=== PATIENT | female | born 1990 | race Two or more races ===

== ENCOUNTER 2016-03-29 07:33 | Emergency (ER) | payer MEDICAID ==
[~2016-03-29] VITALS: Ht 162.6 cm; Wt 77.1 kg
[~2016-03-29 07:33] MED LIST: ACETAMINOPHEN-1 EAC1 ORAL; AMOXICILLIN500 MG ORAL; BROMOCRIPTINE ME5 MG PO; CEPHALEXIN500 MG ORAL; HYDROXYZINE HCL50 M1 PO; IBUPROFEN600 MG ORAL; NKM; NORCO 5-325 TA1 EACH ORAL
--- NOTE | 2016-03-29 07:54 | Emergency Room Report ---
History of Present Illness General Chief Complaint: Flu Like Symptoms Source: Patient Present Illness HPI Patient presents with complaints of cough and congestion Nasal congestion Symptoms ongoing for the past 7 days Denies any headache or visual changes Patient described a midsternal pain with increased cough Denies any vomiting or diarrhea Patient also has had intermittent fevers no Patient complains of productive sputum with the cough Denies any calf pain or swelling Patient recently found out she is about one month ago pending further outpatient workup Allergies: Coded Allergies: No Known Allergies (Unverified , 08/05/13) Patient History Past Medical History: see triage record Pertinent Family History: none Last Menstrual Period: Feb 05, 2016 Now: Yes : 1 Para: 0 Reviewed Nursing Documentation: PMH: Agreed, PSxH: Agreed Nursing Documentation-PMH Past Medical History: No History, Except For Hx Cardiac Problems: No - Pituitary gland problem since 2009 Hx Asthma: No Hx COPD: No Hx Neurological Problems: No - Rt knee surgery in 2008 Review of Systems All Other Systems: negative except mentioned in HPI Physical Exam Vital Signs Date Time Temp Pulse Resp B/P Pulse Ox O2 Delivery O2 Flow Rate FiO2 03/29/16 07:39 99.1 105 20 138/85 98 Room Air Sp02 EP Interpretation: reviewed, normal General Appearance: well appearing, no apparent distress Head: normocephalic, atraumatic Eyes: bilateral eye EOMI, bilateral eye PERRL ENT: hearing grossly normal, normal pharynx, TMs + canals normal, uvula midline , other - Nasal congestion, clear rhinorrhea Neck: full range of motion, supple, no meningismus, no bony tend Respiratory: lungs clear, normal breath sounds, no rhonchi, no respiratory distress, no retraction, no accessory muscle use Cardiovascular #1: normal peripheral pulses, regular rate, rhythm, no edema, no gallop, no JVD, no murmur Gastrointestinal: normal bowel sounds, non tender, soft, no mass, no organomegaly, non-distended, no guarding, no hernia, no pulsatile mass, no rebound Genitourinary: no CVA tenderness Musculoskeletal: normal inspection Neurologic: oriented x3, responsive, trust vault clerk III-XII nml as tested, motor strength/ tone normal, sensory intact Psychiatric: mood/affect normal Skin: normal color, no rash, warm/dry, palpation normal Lymphatic: normal inspection, no adenopathy Medical Decision Making Diagnostic Impression: Primary Impression: Upper respiratory infection ER Course Patient's lung sounds appear to be clear No signs of any respiratory distress patient saturating well Findings are in line with likely URI symptoms My suspicion for pulmonary embolism is low given the associated symptoms and signs And the patient will have initial conservative outpatient trial Last Vital Signs Date Time Temp Pulse Resp B/P Pulse Ox O2 Delivery O2 Flow Rate FiO2 03/29/16 07:49 105 20 Room Air 03/29/16 07:39 99.1 138/85 98 Status: unchanged Disposition: HOME, SELF-CARE Condition: Stable Scripts Albuterol Sulfate* (ALBUTEROL SULFATE MDI*) 8.5 Gm Hfa.aer.ad 2 PUFF INH Q6H, #1 EA 0 Refills Prov: CHAVA SILVA D.O. 03/29/16 Additional Instructions: Patient is provided with the discharge instructions notified to follow up with primary doctor in the next 2-3 days otherwise return to the er with any worsening symptoms. Please note that this report is being documented using [employer] technology. This can lead to erroneous entry secondary to incorrect interpretation by the dictating instrument. CHAVA SILVA D.O. Mar 29, 2016 07:54
[2016-03-29] MEDS ORDERED: AZITHROMYCIN250 MG ORAL (07:55)
[2016-03-29] MEDS ORDERED: ALBUTEROL SULF8.5 GM INH (07:55)
[2016-03-29 08:26] VITALS: BP 114/75
== END 2016-03-29 08:29 | disposition home or self-care (01) ==
LOC: EMR 08:05
DX: J06.9 Acute upper respiratory infection, unspecified (principal); O26.91 Pregnancy related conditions, unspecified, first trimester; Z3A.00 Weeks of gestation of pregnancy not specified
CPT/HCPCS: 99283

== ENCOUNTER 2016-08-06 08:42 | Emergency (ER) | payer MEDICAID ==
[~2016-08-06] VITALS: Ht 165.1 cm; Wt 77.1 kg
[~2016-08-06 08:42] MED LIST changes: +ALBUTEROL SULF8.5 GM INH; +AZITHROMYCIN250 MG ORAL
--- NOTE | 2016-08-06 09:09 | Emergency Room Report ---
History of Present Illness General Chief Complaint: Sore Throat Source: Patient Present Illness HPI This 26-year-old this 26 weeks and presents with sore throat, cough and headache with coughing. This began 2 days ago. She's having difficulty sleeping. She does have headaches that she feels are related to a prolactinoma. She's taking bromocriptine at this time. Headache is only present when she is coughing. She states the pain is 9/10. This is not unusual for her. Pounding when she does cough. She's been able to eat and drink fluids without vomiting or nausea. She heard herself wheezing one time. The cough produces yellow phlegm when she is able to get some up. She did not take any medication last night for the headache or the cough. She's used an inhaler in the past. She states the baby is been active, more so last night. She denies any vaginal bleeding or discharge. She states her urine is somewhat different from her usual. Her last ultrasound determined baby is boy. Allergies: Coded Allergies: No Known Allergies (Unverified , 08/05/13) Patient History Past Medical History: see triage record, other - prolactinoma Social History Narrative at home Last Menstrual Period: 01/12/16 Now: Yes : 1 Para: 1 Reviewed Nursing Documentation: PMH: Agreed, PSxH: Agreed Nursing Documentation-PMH Hx Cardiac Problems: No - Pituitary gland problem since 2009 Hx Asthma: No Hx COPD: No Hx Neurological Problems: No - Rt knee surgery in 2008 Review of Systems All Other Systems: negative except mentioned in HPI Physical Exam Vital Signs Date Time Temp Pulse Resp B/P Pulse Ox O2 Delivery O2 Flow Rate FiO2 08/06/16 08:46 98.1 93 15 129/73 98 Room Air Sp02 EP Interpretation: reviewed, normal General Appearance: well appearing, no apparent distress, GCS 15 Head: normocephalic, atraumatic Eyes: bilateral eye PERRL, bilateral eye normal inspection ENT: moist mucus membranes Neck: supple Respiratory: lungs clear, normal breath sounds Cardiovascular #1: regular rate, rhythm Cardiovascular #2: 2+ radial (R) Gastrointestinal: normal inspection, normal bowel sounds, non tender, no mass, non-distended Genitourinary: deferred Musculoskeletal: back normal, gait/station normal, normal range of motion Neurologic: alert, oriented x3, lead electrical controls engineer III-XII nml as tested, motor strength/tone normal, DTRs symmetric, sensory intact, cerebellar normal, normal gait, speech normal Psychiatric: mood/affect normal Skin: normal inspection, warm/dry Medical Decision Making Diagnostic Impression: Primary Impression: Upper respiratory infection Qualified Codes: J06.9 - Acute upper respiratory infection, unspecified Additional Impressions: 26 weeks gestation of UTI (urinary tract infection) Qualified Codes: N30.00 - Acute cystitis without hematuria History of prolactinoma ER Course This 26 week and woman presents with headache and upper respiratory complaints. Differential includes otitis, bronchospasm, viral syndrome amongst others. His history of prolactinoma and has a headache with this. Her neurologic exam is normal. She's had headaches this severe in the past. She does not take any medication. She feels dehydrated. No imaging is indicated. Laboratory evaluation will be undertaken to make sure there is no electrolyte abnormalities. The patient will be given IV hydration and Tylenol. The patient declines needing a breathing treatment at this time. Urinalysis will be obtained to evaluate the change in the urine. Labs with normal WBC and lytes. Pyuria. Ultrasound was performed by me. heart tones were 136 and the baby had good movement. Patient improved with treatment. Stable for outpatient observation and treatment. Labs Test 08/06/16 09:40 White Blood Count 7.8 K/UL (4.8-10.8) Red Blood Count 4.15 M/UL (4.20-5.40) Hemoglobin 13.4 G/DL (12.0-16.0) Hematocrit 39.1 % (37.0-47.0) Mean Corpuscular Volume 94 FL (80-99) Mean Corpuscular Hemoglobin 32.2 PG (27.0-31.0) Mean Corpuscular Hemoglobin Concent 34.1 G/DL (32.0-36.0) Red Cell Distribution Width 11.9 % (11.6-14.8) Platelet Count 158 K/UL (150-450) Mean Platelet Volume 7.0 FL (6.5-10.1) Neutrophils (%) (Auto) 72.0 % (45.0-75.0) Lymphocytes (%) (Auto) 16.8 % (20.0-45.0) Monocytes (%) (Auto) 8.2 % (1.0-10.0) Eosinophils (%) (Auto) 1.7 % (0.0-3.0) Basophils (%) (Auto) 1.3 % (0.0-2.0) Urine Color Pale yellow Urine Appearance Slightly cloudy Urine pH 8 (4.5-8.0) Urine Specific [place] 1.010 (1.005-1.035) Urine Protein Negative (NEGATIVE) Urine Glucose (UA) Negative (NEGATIVE) Urine Ketones 2+ (NEGATIVE) Urine Occult Blood Negative (NEGATIVE) Urine Nitrite Negative (NEGATIVE) Urine Bilirubin Negative (NEGATIVE) Urine Urobilinogen Normal MG/DL (0.0-1.0) Urine Leukocyte Esterase 3+ (NEGATIVE) Urine RBC 0-2 /HPF (0 - 2) Urine WBC 10-15 /HPF (0 - 2) Urine Squamous Epithelial Cells Moderate /LPF (NONE/OCC) Urine Bacteria Few /HPF (NONE) Sodium Level 141 mEQ/L (135-145) Potassium Level 3.6 mEQ/L (3.4-4.9) Chloride Level 103 mEQ/L (98-107) Carbon Dioxide Level 23 mEQ/L (20-30) Anion Gap 15 (5-15) Blood Urea Nitrogen 6 mg/dL (7-23) Creatinine 0.5 mg/dL (0.5-0.9) Estimat Glomerular Filtration Rate > 60 mL/min (>60) Glucose Level 92 mg/dL (74-106) Calcium Level 9.0 mg/dL (8.6-10.2) Total Bilirubin 0.3 mg/dL (0.0-1.2) Aspartate Amino Transf (AST/SGOT) 23 U/L (5-40) Alanine Aminotransferase (ALT/SGPT) 24 U/L (3-33) Alkaline Phosphatase 74 U/L (35-104) Total Protein 7.1 g/dL (6.6-8.7) Albumin 3.6 g/dL (3.5-5.2) Globulin 3.5 g/dL Albumin/Globulin Ratio 1.0 (1.0-2.7) Lipase 18 U/L (< 60) Last Vital Signs Date Time Temp Pulse Resp B/P Pulse Ox O2 Delivery O2 Flow Rate FiO2 08/06/16 12:10 98.0 89 16 127/70 99 Room Air Status: improved Disposition: HOME, SELF-CARE Condition: Improved Scripts Acetaminophen (Tylenol) 325 Mg Tablet 650 MG ORAL Q6H Y for Prn Pain/Headache/Temp > 101, #30 TAB 0 Refills Prov: Jovan Layton M.D. 08/06/16 Cephalexin* (KEFLEX*) 500 Mg Capsule 500 MG ORAL Q6H, #28 CAP 0 Refills Prov: Jovan Layton M.D. 08/06/16 Jovan Layton M.D. Aug 06, 2016 09:09
[2016-08-06 09:52] LABS: BASOPHILS % (AUTO) 1.3 % (0.0-2.0); EOSINOPHILS % (AUTO) 1.7 % (0.0-3.0); LYMPHOCYTES % (AUTO) 16.8 % (20.0-45.0); MEAN CORPUSCULAR HEMOGLOBIN 32.2 PG (27.0-31.0); MEAN CORPUSCULAR HGB CONC 34.1 G/DL (32.0-36.0); MEAN CORPUSCULAR VOLUME 94 FL (80-99); MONOCYTES % (AUTO) 8.2 % (1.0-10.0); PLATELET COUNT 158 K/UL (150-450); RED BLOOD COUNT 4.15 M/UL (4.20-5.40); RED CELL DISTRIBUTION WIDTH 11.9 % (11.6-14.8); WHITE BLOOD COUNT 7.8 K/UL (4.8-10.8)
[2016-08-06 09:56] LABS: APPEARANCE,URINE SLIGHTLY CLOUDY; KETONES,URINE 2+ (NEGATIVE); LEUKOCYTE ESTERASE ,URINE 3+ (NEGATIVE); NITRITE,URINE NEGATIVE (NEGATIVE); PH,URINE 8 (4.5-8.0); PROTEIN,URINE NEGATIVE (NEGATIVE); UROBILINOGEN,URINE NORMAL MG/DL (0.0-1.0)
[2016-08-06 10:04] LABS: ALANINE AMINOTRANSFERASE 24 U/L (3-33); ANION GAP 15 (5-15); ASPARTATE AMINO TRANSFERASE 23 U/L (5-40); CARBON DIOXIDE 23 mEQ/L (20-30); CHLORIDE 103 mEQ/L (98-107); CREATININE 0.5 mg/dL (0.5-0.9); GLOMERULAR FILTRATION RATE > 60 mL/min (>60); HEMOLYSIS 1; LIPASE 18 U/L (< 60); POTASSIUM 3.6 mEQ/L (3.4-4.9); SODIUM 141 mEQ/L (135-145); TOTAL PROTEIN 7.1 g/dL (6.6-8.7)
[2016-08-06 10:07] LABS: BACTERIA,URINE FEW /HPF; RBC,URINE 0-2 /HPF (0 - 2); SQUAMOUS EPITHELIAL CELL,UR MODERATE /LPF (NONE/OCC)
[2016-08-06 10:58] VITALS: BP 132/71
[2016-08-06] MEDS ORDERED: Metoclopramide 10mg/2ml Inj IVP ONE (11:00)
[2016-08-06] MEDS ORDERED: Cephalexin 500mg cap ORAL ONE (11:00)
[2016-08-06] MEDS ORDERED: DiphenhydrAMINE 50mg/ml Inj IVP ONE (11:00)
[2016-08-06 12:00] VITALS: BP 127/70
[2016-08-06] MEDS ORDERED: KEFLEX500 MG ORAL (12:03)
[2016-08-06] MEDS ORDERED: TYLENOL325 MG ORAL (12:03)
[2016-08-06 12:10] VITALS: BP 127/70
== END 2016-08-06 12:10 | disposition home or self-care (01) ==
LOC: EMR 09:11
DX: O26.892 Other specified pregnancy related conditions, second trimester (principal); O23.12 Infections of bladder in pregnancy, second trimester; O99.512 Diseases of the respiratory system complicating pregnancy, second trimester; Z3A.26 26 weeks gestation of pregnancy; J06.9 Acute upper respiratory infection, unspecified; D35.2 Benign neoplasm of pituitary gland
CPT/HCPCS: 36415; 80053; 81003; 83690; 85025; 87086; 96360; 96374; 96375; 99284; J1200; J2765

== ENCOUNTER 2016-09-10 09:31 | Emergency (ER) | payer MEDICAID ==
[~2016-09-10] VITALS: Ht 165.1 cm; Wt 86.2 kg
[~2016-09-10 09:31] MED LIST changes: +KEFLEX500 MG ORAL; +TYLENOL325 MG ORAL
[2016-09-10 09:40] VITALS: BP 105/58
[2016-09-10] MEDS ORDERED: PRENATAL FORMU1 EAC4 PO (09:40)
--- NOTE | 2016-09-10 11:26 | Diagnostic Imaging Report ---
Indication: TRAUMA Technique: 3 views right hand Comparison: none Findings: There is a fracture of the base of the fifth metacarpal, best appreciated on the oblique view. Is grossly also a fracture of the base of the fourth metacarpal, best appreciated on the AP view. No dislocations. Impression: Positive for fourth and fifth metacarpal base fractures. Findings discussed by phone with Dr. Reese in the emergency room at the time of interpretation
[2016-09-10 12:00] VITALS: BP 109/74
--- NOTE | 2016-09-10 12:16 | Emergency Room Report ---
History of Present Illness General Chief Complaint: Upper Extremity Injury Source: Patient Present Illness HPI The patient states that 4 days ago she hit her right hand against a hard object. She states that she noted it was sorer imprints, however she didn't think much of it. However, she continues to have pain in the hand and has difficulty moving the hand secondary to pain. She also notes increased bruising and swelling of the hand. She has no other injuries or complaints. Of note, she is 31 weeks . Allergies: Coded Allergies: No Known Allergies (Unverified , 08/05/13) Patient History Past Medical History: see triage record, other - pituitary disease Past Surgical History: other - R. knee surgery Social History: Denies: alcohol use, drug use, smoking Last Menstrual Period: 01/27/2016 Now: Yes : 1 Para: 0 Reviewed Nursing Documentation: PMH: Agreed, PSxH: Agreed Nursing Documentation-PMH Past Medical History: No Stated History Hx Cardiac Problems: No - Pituitary gland problem since 2009 Hx Asthma: No Hx COPD: No Hx Neurological Problems: No - Rt knee surgery in 2008 Review of Systems All Other Systems: negative except mentioned in HPI Physical Exam Vital Signs Date Time Temp Pulse Resp B/P Pulse Ox O2 Delivery O2 Flow Rate FiO2 09/10/16 09:33 98.2 70 16 121/74 99 Room Air Sp02 EP Interpretation: reviewed, normal General Appearance: no apparent distress, alert, GCS 15, non-toxic Head: normocephalic, atraumatic Eyes: bilateral eye PERRL, bilateral eye normal inspection ENT: hearing grossly normal, normal pharynx, no angioedema, normal voice Neck: full range of motion, supple/symm/no masses Respiratory: no respiratory distress, no retraction, no accessory muscle use, speaking full sentences Rectal: deferred Musculoskeletal: back normal, gait/station normal, normal range of motion, other - R. hand with ecchymosis and swelling TTP base of the 5th and 4th MC Neurologic: alert, oriented x3, responsive, motor strength/tone normal, sensory intact, speech normal Psychiatric: judgement/insight normal, memory normal, mood/affect normal, no suicidal/homicidal ideation Skin: warm/dry, well hydrated, other - See MSK exam Procedures Splinting Splinting : Consent: Verbal Location: R. arm Hand-Made Type: plaster Splint: poserior short Pre-Proc Neuro Vasc Exam: normal Post-Proc Neuro Vasc Exam: normal Patient Tolerated: Well Complications: None Medical Decision Making Diagnostic Impression: Primary Impression: Metacarpal bone fracture ER Course This patient has fourth and fifth digit metacarpal fractures at the bases. The patient was placed in a short arm splint. The patient was instructed to followup with orthopedics to undergo casting. These are nondisplaced do not require reduction. The patient was given return precautions and followup instructions. Other X-Ray Diagnostic Results Other X-Ray Diagnostic Results : X-Ray ordered: R. Hand # of Views/Limited Vs Complete: Complete Indication: Pain EP Interpretation: No Interpretation: other Impression: Other - 4th and 5th metacarpal base fractures. See official report. Last Vital Signs Date Time Temp Pulse Resp B/P Pulse Ox O2 Delivery O2 Flow Rate FiO2 09/10/16 09:40 98.3 100 105/58 Room Air 09/10/16 09:33 16 99 Status: improved Disposition: HOME, SELF-CARE Condition: Improved Referrals: LAUREN LOOMIS (PCP) LIOR HART D.O. Sep 10, 2016 12:16
[2016-09-10 12:27] VITALS: BP 109/74
== END 2016-09-10 12:27 | disposition home or self-care (01) ==
LOC: EMR 09:50
DX: S62.314A Displaced fracture of base of fourth metacarpal bone, right hand, initial encounter for closed fracture (principal); S62.316A Displaced fracture of base of fifth metacarpal bone, right hand, initial encounter for closed fracture; W22.8XXA Striking against or struck by other objects, initial encounter; Y92.89 Other specified places as the place of occurrence of the external cause
CPT/HCPCS: 29125; 99283